=== PATIENT | female | born 1990 | race Caucasian/White ===

== ENCOUNTER 2017-10-06 20:14 | Emergency (ER) | payer BC ==
[~2017-10-06] VITALS: Ht 165.1 cm; Wt 60.3 kg
--- NOTE | 2017-10-06 20:30 | NUR ---
Dr. Breen at bedside for MSE.
--- NOTE | 2017-10-06 20:40 | NUR ---
Patient ambulated to ER with steady gait, reports was cutting a veggie burger and sliced her left thumb. No other complaints.
[2017-10-06] MEDS ORDERED: HYDROCODONE/APAP 5-325MG TABLET PO ONE (20:45)
[2017-10-06] MEDS ORDERED: TDAP DIPH,PERTUSS,TET VAC/PF 0.5 ML DISP.SYRIN IM ONE ×2 (20:45→20:49)
[2017-10-06] MEDS ORDERED: LIDOCAINE HCL 1% 20 ML VIAL IJ ONE (20:45)
[2017-10-06] MEDS ORDERED: HYDROCODONE/APAP 5-325MG TABLET ONE (20:50)
[2017-10-06] MEDS ORDERED: NEOMY/BACITRA/POLYMYXIN B OINT UD PACKET TP ONE ×2 (21:00→21:01)
--- NOTE | 2017-10-06 21:10 | NUR ---
Patient discharged to home in stable conditon. Written and verbal after care instructions given. Patient verbalizes understanding of instructions. Suture care provided. Patient ambulated out of ER with steady gait, no acute signs of distress, VSS, all belongings taken, to be driven by father via private vehicle.
[2017-10-06 21:18] VITALS: BP 134/80
== END 2017-10-06 21:10 | disposition home or self-care (01) ==
LOC: ER 20:15
DX: S61.012A Laceration without foreign body of left thumb without damage to nail, initial encounter (principal); W26.8XXA Contact with other sharp object(s), not elsewhere classified, initial encounter; Y93.89 Activity, other specified; Y92.89 Other specified places as the place of occurrence of the external cause; Y99.8 Other external cause status
CPT/HCPCS: 90715; A4663; J3490

== ENCOUNTER 2017-10-08 19:01 | Emergency (ER) | payer BC ==
[~2017-10-08] VITALS: Ht 165.1 cm; Wt 60.3 kg
--- NOTE | 2017-10-08 19:20 | NUR ---
pt aox4. pt here with c/o L thumb recheck. in no acute distress.
== END 2017-10-08 19:50 | disposition home or self-care (01) ==
LOC: ER 19:04
DX: S61.012D Laceration without foreign body of left thumb without damage to nail, subsequent encounter (principal); X58.XXXD Exposure to other specified factors, subsequent encounter; Z48.00 Encounter for change or removal of nonsurgical wound dressing
CPT/HCPCS: A4663

== ENCOUNTER 2017-10-16 16:38 | Emergency (ER) | payer BC ==
[~2017-10-16] VITALS: Ht 165.1 cm; Wt 60.3 kg
--- NOTE | 2017-10-16 17:15 | NUR ---
Sutures removed without any complications. Patient discharged to home in stable conditon. Written and verbal after care instructions given. Patient verbalizes understanding of instructions.
== END 2017-10-16 17:18 | disposition home or self-care (01) ==
LOC: ER 16:40
DX: S61.012D Laceration without foreign body of left thumb without damage to nail, subsequent encounter (principal); X58.XXXD Exposure to other specified factors, subsequent encounter; Z48.02 Encounter for removal of sutures
CPT/HCPCS: A4663